=== PATIENT | male | born 1955 | race Caucasian/White ===

== ENCOUNTER 2022-09-22 17:22 | Inpatient (IN) | payer MEDICARE, OTHER ==
[~2022-09-22] VITALS: Ht 193 cm; Wt 80.7 kg
[2022-09-22] VITALS (13 sets, daily range): BP systolic 111–163; BP diastolic 57–98
[2022-09-22] MEDS ORDERED: LEVETIRACETAM 500 MG in SODIUM CHLORIDE 0.9% 100 ML IV SCH (17:45)
[2022-09-22] MEDS ORDERED: DEXAMETHASONE 4MG/ML 1ML VIAL IV ONE (18:00)
[2022-09-22] MEDS ORDERED: LEVETIRACETAM 500MG PREMIX 100 ML IV SCH (18:30)
[2022-09-22] MEDS ORDERED: NICARDIPINE 100 MG in SODIUM CHLORIDE 0.9% 60 ML IV PRN ×2 (18:30→20:30)
[2022-09-22 18:50] LABS: BASOPHILS % 0.9 % (0.0-2.0); EOSINOPHILS % 4.6 % (0.0-5.0); HEMATOCRIT. 39.7 % (42.0-52.0); HEMOGLOBIN. 13.5 g/dL (14.0-18.0); LYMPHOCYTES % 32.3 % (20.0-50.0); MEAN CORPUSCULAR HEMOGLOBIN 32.7 pg (28.0-32.0); MEAN CORPUSCULAR VOLUME 96.7 fL (80.0-94.0); MEAN PLATELET VOLUME 10.6 fl (7.4-10.4); MONOCYTES % 5.4 % (2.0-8.0); NEUTROPHILS % 56.8 % (40.0-76.0); PLATELET 162 x1000/uL (130-400); RED BLOOD CELL COUNT 4.11 mill/uL (4.7-6.1); RED CELL DISTRIBUTION WIDTH 14.6 % (11.6-14.6)
[2022-09-22 18:58] LABS: CHLORIDE 110 mEq/L (98-107)
[2022-09-22 18:59] LABS: PROTHROMBIN TIME 11.2 sec (9.6-11.0)
[2022-09-22] MEDS: DEXT 5%/LACTATED RINGERS 1,000 ML IV SCH (19:10)
[2022-09-22] MEDS ORDERED: ACETAMINOPHEN 325MG TABLET PO PRN ×2 (20:15)
[2022-09-22] MEDS ORDERED: IPRATROPIUM/ALBUTEROL 0.5-3(2.5)MG/3ML NEB HHN PRN (20:15)
[2022-09-22] MEDS ORDERED: ONDANSETRON HCL 4MG/2ML INJ IV PRN (20:15)
[2022-09-22] MEDS ORDERED: CLONIDINE 0.1MG TABLET PO PRN (20:15)
[2022-09-22] MEDS ORDERED: DEXTROSE 50% WATER 50ML SYRINGE IV PRN (20:15)
[2022-09-22 20:41] LABS: PHOSPHORUS 3.3 mg/dL (2.5-4.9)
[2022-09-22 21:03] LABS: PROSTRATE SPECIFIC AG TOTAL 0.84 ng/mL (0.0-4.0)
[2022-09-22] MEDS ORDERED: DEXT 5%/LACTATED RINGERS 1,000 ML IV SCH (21:30)
[2022-09-22] MEDS: BLOOD SUGAR DIAGNOSTIC STRIP TEST SCH (21:52)
[2022-09-22] MEDS: INSULIN LISPRO 100 UNITS/ML SUBCUT SCH (22:31)
[2022-09-22] MEDS: DEXAMETHASONE 4MG/ML 1ML VIAL IV SCH (23:59)
[2022-09-23] VITALS (88 sets, daily range): BP systolic 81–142; BP diastolic 33–73
[2022-09-23 03:08] LABS: CLARITY URINE CLEAR (CLEAR); COLOR URINE YELLOW (YELLOW); KETONES URINE 1+ (NEGATIVE); LEUKOCYTE ESTERASE URINE NEGATIVE (NEGATIVE); NITRITE URINE NEGATIVE (NEGATIVE); OCCULT BLOOD URINE NEGATIVE (NEGATIVE); PH URINE 5.5 (4.5-8.0); PROTEIN URINE NEGATIVE (NEGATIVE); SPECIFIC GRAVITY URINE 1.016 (1.005-1.030); UROBILINOGEN URINE 0.2 E.U./dL (0.2-1.0)
[2022-09-23 03:17] LABS: *AMPHETAMINES SCREEN URINE NEGATIVE (NEGATIVE); *BARBITURATES SCREEN URINE NEGATIVE (NEGATIVE); *BENZODIAZEPINES SCREEN URINE NEGATIVE (NEGATIVE); *COCAINE SCREEN URINE NEGATIVE (NEGATIVE); CANNABINOID URINE SCREEN PRESUMTIVE POSITIVE (NEGATIVE); METHADONE URINE SCREEN NEGATIVE (NEGATIVE); OPIATES URINE SCREEN NEGATIVE (NEGATIVE); PHENCYCLIDINE URINE SCREEN NEGATIVE (NEGATIVE)
[2022-09-23 05:56] LABS: BASOPHILS % 0.1 % (0.0-2.0); EOSINOPHILS % 0.1 % (0.0-5.0); HEMATOCRIT. 40.2 % (42.0-52.0); HEMOGLOBIN. 13.6 g/dL (14.0-18.0); LYMPHOCYTES % 12.8 % (20.0-50.0); MEAN CORPUSCULAR HEMOGLOBIN 32.5 pg (28.0-32.0); MEAN CORPUSCULAR VOLUME 96.3 fL (80.0-94.0); MEAN PLATELET VOLUME 10.5 fl (7.4-10.4); MONOCYTES % 0.9 % (2.0-8.0); NEUTROPHILS % 86.1 % (40.0-76.0); PLATELET 160 x1000/uL (130-400); RED BLOOD CELL COUNT 4.18 mill/uL (4.7-6.1); RED CELL DISTRIBUTION WIDTH 14.5 % (11.6-14.6)
[2022-09-23] MEDS: BLOOD SUGAR DIAGNOSTIC STRIP TEST SCH ×4 (06:13→21:00)
[2022-09-23] MEDS: DEXAMETHASONE 4MG/ML 1ML VIAL IV SCH ×4 (06:13→23:56)
[2022-09-23] MEDS: INSULIN LISPRO 100 UNITS/ML SUBCUT SCH ×4 (06:13→21:02)
[2022-09-23 06:31] LABS: CHLORIDE 111 mEq/L (98-107)
[2022-09-23] MEDS ORDERED: THROMBIN (BOVINE) 5000 UNITS/VIAL TOP ONE (06:35)
[2022-09-23] MEDS ORDERED: LIDOCAINE HCL/EPINEPHRINE 1%-EPI 1:100,000 20 ML VIAL ONE (06:35)
[2022-09-23] MEDS ORDERED: GENTAMICIN SULF 40MG/ML 2ML VIAL ONE (06:35)
[2022-09-23 06:45] LABS: CREATINE KINASE 78 IU/L (39-308); CREATINE KINASE MB FRACTION 2.6 ng/mL (0.5-3.6); HDL CHOLESTEROL 50 mg/dL (40-59); LDL CHOLESTEROL 43 mg/dL (5-100); T4 FREE 0.92 ng/dL (0.76-1.46)
[2022-09-23] MEDS ORDERED: NEOSTIGMINE METHYLSULFATE 1MG/ML 10 ML VIAL ONE (06:58)
[2022-09-23] MEDS ORDERED: ROCURONIUM BROMIDE 10MG/ML VIAL 5ML IV ONE (06:58)
[2022-09-23] MEDS ORDERED: ONDANSETRON HCL 4MG/2ML INJ ONE (06:58)
[2022-09-23] MEDS ORDERED: ETOMIDATE 2MG/ML 10ML VIAL IV ONE (06:58)
[2022-09-23] MEDS ORDERED: DEXAMETHASONE 4MG/ML 1ML VIAL ONE (06:58)
[2022-09-23] MEDS ORDERED: FENTANYL CITRATE/PF 50MCG/ML 2ML VIAL ONE (06:59)
[2022-09-23] MEDS ORDERED: GLYCOPYRROLATE 0.2 MG/ML 2ML VIAL ONE ×2 (06:59)
[2022-09-23] MEDS ORDERED: SUCCINYLCHOLINE CHLORIDE 200MG/10ML IV ONE (07:00)
[2022-09-23] MEDS ORDERED: MIDAZOLAM HCL 2 MG/2 ML VIAL ONE (07:00)
[2022-09-23] MEDS ORDERED: CEFAZOLIN SODIUM 1000MG/VIAL ONE (07:00)
[2022-09-23] MEDS ORDERED: CLINDAMYCIN 900 MG PREMIX 50 ML IV ONE (07:06)
[2022-09-23] MEDS ORDERED: PROPOFOL 200MG/20ML VIAL IV ONE (07:23)
[2022-09-23] MEDS ORDERED: BACITRACIN 15GM TUBE TOP ONE (08:08)
[2022-09-23] MEDS ORDERED: HYDRALAZINE 20MG/ML VIAL ONE (08:32)
[2022-09-23] MEDS ORDERED: LABETALOL HCL 5MG/ML VIAL 20ML IV ONE (08:32)
[2022-09-23] MEDS: AMLODIPINE 10MG TABLET PO SCH (09:00)
[2022-09-23] MEDS ORDERED: LOSARTAN POTASSIUM 25 MG TABLET PO SCH (09:00)
[2022-09-23] MEDS ORDERED: LEVETIRACETAM 500MG PREMIX 100 ML IV SCH (09:00)
[2022-09-23] MEDS: PANTOPRAZOLE SODIUM 40 MG/VIAL IV SCH (09:33)
[2022-09-23] MEDS: LEVETIRACETAM 500MG PREMIX 100 ML IV SCH ×2 (10:44→21:01)
[2022-09-23] MEDS: MORPHINE SULFATE 4 MG/ML CPJ (NOT FOR IM USE) IV PRN ×2 (11:26→23:57)
[2022-09-23] MEDS: CLINDAMYCIN 600MG PREMIX 50 ML IV SCH ×3 (12:16→23:55)
[2022-09-23] MEDS ORDERED: CEFAZOLIN SODIUM 1000MG/VIAL IV SCH (14:00)
[2022-09-23] MEDS: DEXT 5%/LACTATED RINGERS 1,000 ML IV SCH (15:18)
[2022-09-23 17:09] LABS: HEMATOCRIT 36.3 % (42.0-52.0); HEMOGLOBIN 12.4 g/dL (14.0-18.0)
[2022-09-23 17:16] LABS: INR 1.1; PROTHROMBIN TIME 11.7 sec (9.6-11.0)
[2022-09-23 20:28] LABS: FOLIC ACID (FOLATE) SERUM 16.4 ng/mL (>5.38)
[2022-09-24] VITALS (56 sets, daily range): BP systolic 98–149; BP diastolic 41–98
[2022-09-24] MEDS: DEXT 5%/LACTATED RINGERS 1,000 ML IV SCH ×2 (04:00→09:31)
[2022-09-24] MEDS: BLOOD SUGAR DIAGNOSTIC STRIP TEST SCH ×4 (05:41→21:23)
[2022-09-24 05:59] LABS: HEMATOCRIT. 32.6 % (42.0-52.0); HEMOGLOBIN. 11.2 g/dL (14.0-18.0); LYMPHOCYTES % 9.3 % (20.0-50.0); MEAN CORPUSCULAR HEMOGLOBIN 32.8 pg (28.0-32.0); MEAN CORPUSCULAR VOLUME 95.5 fL (80.0-94.0); MEAN PLATELET VOLUME 10.5 fl (7.4-10.4); MONOCYTES % 3.5 % (2.0-8.0); NEUTROPHILS % 87.2 % (40.0-76.0); PLATELET 144 x1000/uL (130-400); RED BLOOD CELL COUNT 3.41 mill/uL (4.7-6.1); RED CELL DISTRIBUTION WIDTH 15.1 % (11.6-14.6)
[2022-09-24 06:06] LABS: CHLORIDE 108 mEq/L (98-107)
[2022-09-24] MEDS: CLINDAMYCIN 600MG PREMIX 50 ML IV SCH ×2 (06:09→12:08)
[2022-09-24] MEDS: DEXAMETHASONE 4MG/ML 1ML VIAL IV SCH ×3 (06:09→17:29)
[2022-09-24] MEDS: INSULIN LISPRO 100 UNITS/ML SUBCUT SCH ×4 (06:10→21:24)
[2022-09-24 06:16] LABS: PHOSPHORUS 4.1 mg/dL (2.5-4.9)
[2022-09-24] MEDS ORDERED: CALCIUM CARBONATE 500MG TABLET CHEW PO PRN (07:00)
[2022-09-24] MEDS: LEVETIRACETAM 500MG PREMIX 100 ML IV SCH ×2 (09:01→21:23)
[2022-09-24] MEDS: PANTOPRAZOLE SODIUM 40 MG/VIAL IV SCH (09:01)
[2022-09-24] MEDS: AMLODIPINE 10MG TABLET PO SCH (09:02)
[2022-09-24] MEDS ORDERED: NALOXONE HCL 0.4MG/ML VIAL IV PRN (10:00)
[2022-09-24] MEDS: MORPHINE SULFATE 4 MG/ML CPJ (NOT FOR IM USE) IV PRN ×2 (11:43→22:56)
[2022-09-24 13:07] LABS: *CREATININE RANDOM URINE 40.1 mg/dL (Not Estab.); MICROALBUMIN RANDOM URINE 37.9 ug/mL (Not Estab.)
[2022-09-25] VITALS (38 sets, daily range): BP systolic 120–169; BP diastolic 44–91
[2022-09-25] MEDS: MORPHINE SULFATE 4 MG/ML CPJ (NOT FOR IM USE) IV PRN ×4 (03:30→20:47)
[2022-09-25 05:14] LABS: HEMOGLOBIN 11.5 g/dL (14.0-18.0); MEAN CORPUSCULAR HEMOGLOBIN 33.4 pg (28.0-32.0); MEAN CORPUSCULAR VOLUME 96.2 fL (80.0-94.0); PLATELET 140 x1000/uL (130-400); RED BLOOD CELL COUNT 3.43 mill/uL (4.7-6.1); RED CELL DISTRIBUTION WIDTH 14.8 % (11.6-14.6)
[2022-09-25 05:30] LABS: INR 1.1; PROTHROMBIN TIME 11.5 sec (9.6-11.0)
[2022-09-25 05:52] LABS: PHOSPHORUS 3.3 mg/dL (2.5-4.9)
[2022-09-25] MEDS: BLOOD SUGAR DIAGNOSTIC STRIP TEST SCH ×4 (06:26→21:00)
[2022-09-25] MEDS: INSULIN LISPRO 100 UNITS/ML SUBCUT SCH ×4 (06:27→21:00)
[2022-09-25] MEDS ORDERED: INSULIN LISPRO 100 UNITS/ML SUBCUT SCH (07:00)
[2022-09-25] MEDS: LEVETIRACETAM 500MG PREMIX 100 ML IV SCH ×2 (08:38→20:46)
[2022-09-25] MEDS: AMLODIPINE 10MG TABLET PO SCH (08:39)
[2022-09-25] MEDS: PANTOPRAZOLE SODIUM 40 MG/VIAL IV SCH (08:39)
[2022-09-25] MEDS ORDERED: MAGNESIUM 2 G PREMIX 50 ML IV NR (10:00)
[2022-09-25] MEDS ORDERED: HYDRALAZINE 20MG/ML VIAL IV PRN (12:30)
[2022-09-25] MEDS: DEXT 5%/LACTATED RINGERS 1,000 ML IV SCH (13:19)
[2022-09-25] MEDS ORDERED: POLYETHYLENE GLYCOL 3350 (17GM) 1 DOSE PACK PO PRN (17:45)
[2022-09-25] MEDS: SENNOSIDES/DOCUSATE SOD 8.6/50MG TABLET PO SCH (17:49)
[2022-09-25] MEDS ORDERED: IPRATROPIUM BROMIDE (0.02%) 0.5MG/2.5ML NEB HHN PRN (19:45)
[2022-09-25] MEDS ORDERED: ALBUTEROL (0.083%) 2.5MG/3ML NEB HHN PRN (19:45)
[2022-09-26] VITALS (7 sets, daily range): BP systolic 120–160; BP diastolic 54–76
[2022-09-26] MEDS: MORPHINE SULFATE 4 MG/ML CPJ (NOT FOR IM USE) IV PRN ×3 (04:56→17:58)
[2022-09-26] MEDS: BLOOD SUGAR DIAGNOSTIC STRIP TEST SCH ×3 (06:26→16:11)
[2022-09-26] MEDS: INSULIN LISPRO 100 UNITS/ML SUBCUT SCH ×3 (06:26→16:16)
[2022-09-26] MEDS: DEXT 5%/LACTATED RINGERS 1,000 ML IV SCH (06:27)
[2022-09-26 06:31] LABS: HEMATOCRIT 36.8 % (42.0-52.0); HEMOGLOBIN 12.9 g/dL (14.0-18.0); MEAN CORPUSCULAR HEMOGLOBIN 33.7 pg (28.0-32.0); MEAN CORPUSCULAR VOLUME 96.5 fL (80.0-94.0); PLATELET 141 x1000/uL (130-400); RED BLOOD CELL COUNT 3.82 mill/uL (4.7-6.1); RED CELL DISTRIBUTION WIDTH 15.1 % (11.6-14.6)
[2022-09-26] MEDS: LEVETIRACETAM 500MG PREMIX 100 ML IV SCH (08:42)
[2022-09-26] MEDS: PANTOPRAZOLE SODIUM 40 MG/VIAL IV SCH (08:43)
[2022-09-26] MEDS: SENNOSIDES/DOCUSATE SOD 8.6/50MG TABLET PO SCH ×2 (08:43→16:17)
[2022-09-26] MEDS: AMLODIPINE 10MG TABLET PO SCH (08:43)
[2022-09-27] MEDS ORDERED: FAMOTIDINE 20MG/2ML VIAL IV SCH (09:00)
[2022-10-06] MEDS ORDERED: LOSA25TA3 PO (07:43)
[2022-10-06] MEDS ORDERED: OCD PO (07:43)
[2022-10-06] MEDS ORDERED: KEPP500 PO (07:43)
[2022-10-06] MEDS ORDERED: AMLO10TA80 PO (07:43)
== END 2022-09-26 18:09 | DRG 25 ==
LOC: ER 17:22 → MICUSO 18:39 → EDBEDREQTM 18:43 → EDBEDREQ 18:43 → 7EST 09-25 19:30
PROVIDERS: ADMIT Internal Medicine; ATTEND Internal Medicine
PROC: 00C40ZZ Extirpation of Matter from Intracranial Subdural Space, Open Approach (ICD-10-PCS; principal; 2022-09-23)
PROC: 00940ZZ Drainage of Intracranial Subdural Space, Open Approach (ICD-10-PCS; 2022-09-23)
PROC: 0NB10ZZ Excision of Frontal Bone, Open Approach (ICD-10-PCS; 2022-09-23)
PROC: 00H032Z Insertion of Monitoring Device into Brain, Percutaneous Approach (ICD-10-PCS; 2022-09-23)
PROC: 0NU Head and Facial Bones, Supplement (ICD-10-PCS; 2022-09-23)
PROC: 4A103BD Monitoring of Intracranial Pressure, Percutaneous Approach (ICD-10-PCS; 2022-09-23)
PROC: 30233R1 Transfusion of Nonautologous Platelets into Peripheral Vein, Percutaneous Approach (ICD-10-PCS; 2022-09-23)
PROC: 4A00X4Z Measurement of Central Nervous Electrical Activity, External Approach (ICD-10-PCS; 2022-09-24)
DX: I62.02 Nontraumatic subacute subdural hemorrhage (principal); G93.41 Metabolic encephalopathy; N17.0 Acute kidney failure with tubular necrosis; G81.94 Hemiplegia, unspecified affecting left nondominant side; E11.22 Type 2 diabetes mellitus with diabetic chronic kidney disease; E11.42 Type 2 diabetes mellitus with diabetic polyneuropathy; G43.909 Migraine, unspecified, not intractable, without status migrainosus; G93.2 Benign intracranial hypertension; I12.9 Hypertensive chronic kidney disease with stage 1 through stage 4 chronic kidney disease, or unspecified chronic kidney disease; N18.9 Chronic kidney disease, unspecified; D63.1 Anemia in chronic kidney disease; N31.9 Neuromuscular dysfunction of bladder, unspecified; Z20.822 Contact with and (suspected) exposure to COVID-19; G47.33 Obstructive sleep apnea (adult) (pediatric); I16.0 Hypertensive urgency; R29.6 Repeated falls; R00.1 Bradycardia, unspecified; I25.10 Atherosclerotic heart disease of native coronary artery without angina pectoris; Z86.73 Personal history of transient ischemic attack (TIA), and cerebral infarction without residual deficits; Z85.47 Personal history of malignant neoplasm of testis; Z87.19 Personal history of other diseases of the digestive system; Z87.891 Personal history of nicotine dependence; Z88.0 Allergy status to penicillin; Z95.5 Presence of coronary angioplasty implant and graft; Z95.1 Presence of aortocoronary bypass graft; Z92.21 Personal history of antineoplastic chemotherapy; W18.30XA Fall on same level, unspecified, initial encounter; Y93.89 Activity, other specified; Y92.89 Other specified places as the place of occurrence of the external cause; Y99.8 Other external cause status
CPT/HCPCS: 36415; 71045; 80048; 80053; 80061; 80305; 81003; 82043; 82550; 82553; 82570; 82607; 82728; 82746; 82962; 83036; 83540; 83550; 83735; 84100; 84153; 84439; 84443; 84481; 84484; 85014; 85018; 85025; 85027; 85049; 85379; 85384; 86850; 86900; 87426; 88304; 93005; 93306; 93880; 93970; 97116; 97162; 97166; 97530; 99291; C9113; J0330; J0360; J0690; J1100; J1580; J1815; J1953; J2250; J2270; J2405; J2704; J2710; J3010; J3475; J3490; J7050; J7120; P9034; A4315; C1713; G0103

== ENCOUNTER → 2022-11-26 | Outpatient (CLI) | payer MEDICARE, OTHER ==
[~2022-11-26] MED LIST: AMLO10TA80 PO; KEPP500 PO; LOSA25TA3 PO; OCD PO; REGADENOSON 0.4 MG/5 ML IV ONE
== END | disposition home or self-care (01) ==
LOC: NM 08:46
PROVIDERS: ATTEND Internal Medicine
DX: Z01.818 Encounter for other preprocedural examination (principal); I20.0 Unstable angina
CPT/HCPCS: 78452; A9500; J2785